=== PATIENT | male | born 1975 | race Caucasian/White ===

== ENCOUNTER 2024-02-26 16:44 | Inpatient (IN) | payer MEDICARE, OTHER ==
[~2024-02-26] VITALS: Ht 193 cm; Wt 121.1 kg
[2024-02-26] MEDS ORDERED: PRAM0.253 PO (17:09)
[2024-02-26] MEDS ORDERED: TORS20TA3 PO (17:09)
[2024-02-26] MEDS ORDERED: INSU100V7 SQ (17:09)
[2024-02-26] MEDS ORDERED: GABA600T12 PO (17:09)
[2024-02-26] MEDS ORDERED: IBUP-1953 PO (17:09)
[2024-02-26] MEDS ORDERED: INSU100V11 SQ (17:09)
[2024-02-26] MEDS ORDERED: ALLO100T PO (17:09)
[2024-02-26] MEDS ORDERED: METO-358 PO (17:09)
[2024-02-26] MEDS ORDERED: ASPI81TA31 PO (17:09)
[2024-02-26] MEDS ORDERED: LISI10TA29 PO (17:09)
[2024-02-26] MEDS ORDERED: ATOR80TA PO (17:09)
[2024-02-26 17:43] LABS: BASOPHILS # (AUTO) 0.2 K/UL (0.0-0.2); BASOPHILS % (AUTO) 1.3 % (0.0-2.0); EOSINOPHILS # (AUTO) 0.5 K/uL (0.0-0.7); EOSINOPHILS % (AUTO) 3.9 % (0.0-7.0); HEMATOCRIT 34.3 % (36.7-47.1); HEMOGLOBIN 10.9 g/dL (12.5-16.3); LYMPHOCYTES # (AUTO) 1.9 K/uL (0.8-4.8); LYMPHOCYTES % (AUTO) 15.7 % (20.5-51.5); MEAN CORPUSCULAR HGB CONC 32 g/dL (32.5-36.3); MEAN CORPUSCULAR VOLUME 78.2 fL (73.0-96.2); MONOCYTES # (AUTO) 1.3 K/uL (0.1-1.30); MONOCYTES % (AUTO) 10.6 % (0.0-11.0); NEUTROPHILS # (AUTO) 8.3 K/uL (1.8-8.9); NEUTROPHILS % (AUTO) 68.5 % (38.5-71.5); PLATELET COUNT (AUTO) 286 K/uL (152-348); RED BLOOD CELL COUNT(AUTO) 4.39 MIL/uL (4.06-5.63); RED CELL DISTRIBUTION WIDTH 18.5 % (12.1-16.2); WHITE BLOOD COUNT (AUTO) 12.1 K/uL (3.6-10.2)
[2024-02-26 17:44] LABS: DIFFERENTIAL COMMENT 1
[2024-02-26] MEDS ORDERED: FUROSEMIDE 40 MG/4 ML VIAL ONE (17:45)
[2024-02-26] MEDS ORDERED: NITROGLYCERIN OINT 1 GM PACKET TP ONE (17:45)
[2024-02-26] MEDS: NITROGLYCERIN OINT 1 GM PACKET TP ONE (17:49)
[2024-02-26] MEDS: FUROSEMIDE 40 MG/4 ML VIAL IV ONE (17:50)
[2024-02-26 17:53] LABS: CALCIUM 8.5 mg/dL (8.5-10.1); CARBON DIOXIDE 32 mmol/L (21-32); CHLORIDE 102 mmol/L (98-107); CREATININE 1.3 mg/dL (0.6-1.3); GLUCOSE 253 mg/dL (74-106); POTASSIUM 4.5 mmol/L (3.5-5.1); SODIUM SERUM 138 mmol/L (136-145); UREA NITROGEN, BLOOD 42 mg/dL (7-18)
[2024-02-26 18:11] LABS: ALANINE AMINOTRANSFERASE 42 U/L (16-63); ALBUMIN 2.9 g/dL (3.4-5.0); ALKALINE PHOSPHATASE 84 U/L (50-136); ASPARTATE AMINOTRANSFERASE 47 U/L (15-37); BILIRUBIN,DIRECT 0.2 mg/dL (0.0-0.2); BILIRUBIN,TOTAL 0.4 mg/dL (0.2-1.0); NT-PRO BNP 324 pg/mL (0-125)
[2024-02-26] MEDS: ATORVASTATIN 40 MG TABLET PO SCH (22:15)
[2024-02-26] MEDS: INSULIN GLARGINE,HUM 300 UNITS/3 ML CARTRIDGE SQ SCH (22:15)
[2024-02-26] MEDS ORDERED: ACETAMINOPHEN 325 MG TABLET PO PRN (22:15)
[2024-02-26] MEDS ORDERED: IBUPROFEN 400 MG TABLET PO PRN (22:15)
[2024-02-26] MEDS ORDERED: DEXTROSE 50% 50 ML DISP.SYRIN IV PRN (22:15)
[2024-02-26] MEDS ORDERED: MAGNESIUM HYDROXIDE 30 ML LIQUID UDC PO PRN (22:15)
[2024-02-26] MEDS ORDERED: ONDANSETRON 4 MG/2 ML VIAL IV PRN (22:15)
[2024-02-26] MEDS: methylPREDNISolone SOD SUCC 40 MG/ML VIAL IV SCH (23:14)
[2024-02-26] MEDS: GABAPENTIN 300 MG CAPSULE PO SCH (23:15)
[2024-02-26] MEDS: ENOXAPARIN SODIUM 40 MG/0.4 ML DISP.SYRIN SQ SCH (23:16)
[2024-02-26] MEDS: INSULIN REGULAR, HUMAN 300 UNITS/3 ML VIAL SQ PRN (23:18)
[2024-02-26] MEDS: BLOOD SUGAR DIAGNOSTIC 1 EACH STRIP VI SCH (23:18)
[2024-02-26] MEDS ORDERED: INSULIN GLARGINE,HUM 300 UNITS/3 ML CARTRIDGE SQ ONE (23:20)
[2024-02-26 23:48] VITALS: TEMP 97.4
[2024-02-27] VITALS (15 sets, daily range): BP systolic 96–146; BP diastolic 55–76; TEMP 97.4–97.9; O2SAT 95–100
[2024-02-27] MEDS: ALBUTEROL SULFATE 1.25 MG/3 ML NEBU NEB PRN (04:03)
[2024-02-27] MEDS: IPRATROPIUM BROMIDE 0.5 MG/2.5 ML NEBU NEB PRN (04:03)
[2024-02-27 06:45] LABS: BASOPHILS % (AUTO) 0.6 % (0.0-2.0); EOSINOPHILS % (AUTO) 0.2 % (0.0-7.0); HEMATOCRIT 34.6 % (36.7-47.1); HEMOGLOBIN 11.1 g/dL (12.5-16.3); LYMPHOCYTES # (AUTO) 0.5 K/uL (0.8-4.8); LYMPHOCYTES % (AUTO) 6.4 % (20.5-51.5); MEAN CORPUSCULAR HEMOGLOBIN 25.5 uug (23.8-33.4); MEAN CORPUSCULAR HGB CONC 32 g/dL (32.5-36.3); MEAN CORPUSCULAR VOLUME 79.1 fL (73.0-96.2); MONOCYTES # (AUTO) 0.1 K/uL (0.1-1.30); MONOCYTES % (AUTO) 1.5 % (0.0-11.0); NEUTROPHILS % (AUTO) 91.3 % (38.5-71.5); PLATELET COUNT (AUTO) 254 K/uL (152-348); RED BLOOD CELL COUNT(AUTO) 4.37 MIL/uL (4.06-5.63); RED CELL DISTRIBUTION WIDTH 18.7 % (12.1-16.2); WHITE BLOOD COUNT (AUTO) 7.7 K/uL (3.6-10.2)
[2024-02-27 06:47] LABS: DIFFERENTIAL COMMENT 1
[2024-02-27 06:56] LABS: CALCIUM 8.3 mg/dL (8.5-10.1); CREATININE 1.2 mg/dL (0.6-1.3); PHOSPHOROUS 3.8 mg/dL (2.5-4.9); POTASSIUM 5.3 mmol/L (3.5-5.1)
[2024-02-27] MEDS: INSULIN REGULAR, HUMAN 1000 UNIT/10 ML VIAL SQ PRN ×2 (08:16→12:04)
[2024-02-27] MEDS: ASPIRIN 81 MG TAB.CHEW PO SCH (08:17)
[2024-02-27] MEDS: METOPROLOL SUCCINATE XL 50 MG TAB.SR.24H PO SCH (08:17)
[2024-02-27] MEDS ORDERED: ALLOPURINOL 100 MG TABLET PO SCH (09:00)
[2024-02-27] MEDS ORDERED: LISINOPRIL 10 MG TABLET PO SCH ×2 (09:00)
[2024-02-27] MEDS ORDERED: DEXTROSE 50% 50 ML DISP.SYRIN IV PRN (09:30)
[2024-02-27] MEDS: GUAIFENESIN LA 600 MG TABLET.SA PO SCH (10:22)
[2024-02-27] MEDS: SODIUM POLYSTYRENE SULFONATE 15 G/60 ML LIQUID UDC PO ONE (10:22)
[2024-02-27] MEDS: FUROSEMIDE 20 MG/2 ML VIAL IV SCH (10:22)
[2024-02-27] MEDS: ALBUTEROL SULFATE 1.25 MG/3 ML NEBU NEB SCH (11:39)
[2024-02-27] MEDS: IPRATROPIUM BROMIDE 0.5 MG/2.5 ML NEBU NEB SCH (11:39)
[2024-02-27] MEDS: BLOOD SUGAR DIAGNOSTIC 1 EACH STRIP VI SCH (11:53)
[2024-02-27 13:23] LABS: CALCIUM 8.7 mg/dL (8.5-10.1); CREATININE 1.3 mg/dL (0.6-1.3)
[2024-02-27 13:39] LABS: POTASSIUM 5.3 mmol/L (3.5-5.1)
[2024-02-27] MEDS ORDERED: BUDE10.2 IH (14:09)
[2024-02-27] MEDS ORDERED: ALBU2.5V38 IH (14:10)
[2024-02-27] MEDS: GABAPENTIN 300 MG CAPSULE PO SCH (14:32)
[2024-02-27] MEDS: ALLOPURINOL 100 MG TABLET PO SCH (16:30)
[2024-02-27] MEDS: [UNRECOGNIZED DRUG - OTHER] INH SCH (16:41)
[2024-02-27] MEDS: FORMOTEROL INH SCH (16:41)
[2024-02-27] MEDS: BUDESONIDE INH SCH (16:41)
[2024-02-27] MEDS ORDERED: PRAMIPEXOLE 0.25 MG TABLET PO SCH ×2 (18:00)
[2024-02-27] MEDS: PRAMIPEXOLE 1 MG TABLET PO SCH (21:15)
[2024-02-27] MEDS: INSULIN REGULAR, HUMAN 300 UNITS/3 ML VIAL SQ PRN (21:24)
[2024-02-28] VITALS (9 sets, daily range): BP systolic 112–146; BP diastolic 61–86; TEMP 97.6–97.8; O2SAT 97–99
[2024-02-28 06:25] LABS: BASOPHILS # (AUTO) 0.1 K/UL (0.0-0.2); BASOPHILS % (AUTO) 0.6 % (0.0-2.0); HEMATOCRIT 33.4 % (36.7-47.1); HEMOGLOBIN 10.7 g/dL (12.5-16.3); LYMPHOCYTES # (AUTO) 0.7 K/uL (0.8-4.8); LYMPHOCYTES % (AUTO) 5.9 % (20.5-51.5); MEAN CORPUSCULAR HEMOGLOBIN 25.3 uug (23.8-33.4); MEAN CORPUSCULAR HGB CONC 32 g/dL (32.5-36.3); MEAN CORPUSCULAR VOLUME 78.9 fL (73.0-96.2); MONOCYTES # (AUTO) 0.4 K/uL (0.1-1.30); MONOCYTES % (AUTO) 3.5 % (0.0-11.0); PLATELET COUNT (AUTO) 250 K/uL (152-348); RED BLOOD CELL COUNT(AUTO) 4.24 MIL/uL (4.06-5.63); RED CELL DISTRIBUTION WIDTH 18.4 % (12.1-16.2); WHITE BLOOD COUNT (AUTO) 12.2 K/uL (3.6-10.2)
[2024-02-28 06:57] LABS: CREATININE 1.1 mg/dL (0.6-1.3); MAGNESIUM 2.2 mg/dL (1.8-2.4); PHOSPHOROUS 3.6 mg/dL (2.5-4.9); POTASSIUM 4.5 mmol/L (3.5-5.1)
[2024-02-28] MEDS: FUROSEMIDE 40 MG TABLET PO SCH (08:16)
[2024-02-28] MEDS: MEDIHONEY= THERAHONEY 1.5 OZ TUBE TOP SCH (08:18)
[2024-02-28] MEDS: INSULIN GLARGINE,HUM 300 UNITS/3 ML CARTRIDGE SQ SCH (08:19)
== END 2024-02-28 15:20 | disposition left against medical advice (07) | DRG 280 ==
LOC: ER 16:46 → TELE3 21:41
PROVIDERS: ADMIT Nurse Practitioner Acute Care; ATTEND Nurse Practitioner Acute Care
DX: I50.33 Acute on chronic diastolic (congestive) heart failure (principal); J18.9 Pneumonia, unspecified organism; I21.A1 Myocardial infarction type 2; J96.20 Acute and chronic respiratory failure, unspecified whether with hypoxia or hypercapnia; J44.1 Chronic obstructive pulmonary disease with (acute) exacerbation; B40.2 Pulmonary blastomycosis, unspecified; M86.672 Other chronic osteomyelitis, left ankle and foot; L97.526 Non-pressure chronic ulcer of other part of left foot with bone involvement without evidence of necrosis; D68.59 Other primary thrombophilia; E44.0 Moderate protein-calorie malnutrition; T82.218A Other mechanical complication of coronary artery bypass graft, initial encounter; J44.0 Chronic obstructive pulmonary disease with (acute) lower respiratory infection; E11.42 Type 2 diabetes mellitus with diabetic polyneuropathy; Z53.29 Procedure and treatment not carried out because of patient's decision for other reasons; I25.10 Atherosclerotic heart disease of native coronary artery without angina pectoris; E11.69 Type 2 diabetes mellitus with other specified complication; E11.621 Type 2 diabetes mellitus with foot ulcer; E66.01 Morbid (severe) obesity due to excess calories; E88.09 Other disorders of plasma-protein metabolism, not elsewhere classified; Z95.820 Peripheral vascular angioplasty status with implants and grafts; F15.11 Other stimulant abuse, in remission; Z88.6 Allergy status to analgesic agent; Z88.2 Allergy status to sulfonamides; Z98.61 Coronary angioplasty status; Z95.1 Presence of aortocoronary bypass graft; Z99.81 Dependence on supplemental oxygen; Z79.4 Long term (current) use of insulin; Z79.82 Long term (current) use of aspirin; Z79.899 Other long term (current) drug therapy; D72.829 Elevated white blood cell count, unspecified; T38.0X5A Adverse effect of glucocorticoids and synthetic analogues, initial encounter; Z88.5 Allergy status to narcotic agent; E11.65 Type 2 diabetes mellitus with hyperglycemia
CPT/HCPCS: 36415; 71045; 73660; 83735; 84100; 84484; 85025; 85730; 93307; 94640; 94664; A4606; A4663; G0378; J1650; J1815; J1940; J2919; J3590; J8499